=== PATIENT | female | born 1940 | race Caucasian/White ===

== ENCOUNTER 2020-05-31 17:06 | Inpatient (IN) | payer MEDICARE ==
[~2020-05-31] VITALS: Ht 167.6 cm; Wt 77.2 kg
[2020-05-31 19:24] LABS: BASOPHILS % (AUTO) 0.2 % (0.0-5.0); EOSINOPHILS % (AUTO) 0.2 % (0.0-8.0); HEMATOCRIT 39.1 % (36-48); MEAN CORPUSCULAR HEMOGLOBIN 33.8 pg (27.0-33.0); MEAN CORPUSCULAR HGB CONC 34.5 g/dL (32.0-36.0); MEAN CORPUSCULAR VOLUME 97.8 fL (79-99); NEUTROPHILS % (AUTO) 87.2 % (40.0-77.0); PLATELET COUNT (AUTO) 238 K/uL (130-400); RED CELL DISTRIBUTION WIDTH 12.2 % (11.0-15.5); WHITE BLOOD COUNT (AUTO) 14.2 K/uL (4.8-10.8)
[2020-05-31 19:35] LABS: CREATININE 1.1 mg/dL (0.5-1.5); POTASSIUM 3.5 mmol/L (3.5-5.1)
[2020-05-31 19:36] LABS: INR 0.98 (0.85-1.15); PROTHROMBIN TIME 10.7 SEC (9.6-11.6)
[2020-05-31 19:37] LABS: PARTIAL THROMBOPLASTIN TIME 23.3 SEC (26.3-35.5)
[2020-05-31 19:44] LABS: ALBUMIN 3.7 g/dL (3.5-5.0); BILIRUBIN,TOTAL 0.5 mg/dL (0.2-1.0)
[2020-05-31] MEDS ORDERED: HYDROCODONE/ACETAMINOPHEN 10/325 MG TAB ONE (20:29)
[2020-05-31] MEDS ORDERED: CEFTRIAXONE 1G VIAL ONE (20:29)
[2020-05-31] MEDS ORDERED: 0.9%NACL 100ML 100 ML IV ONE (20:31)
[2020-05-31] MEDS ORDERED: KETOROLAC 15MG/ML VIAL (15MG/ML) ONE (20:54)
[2020-05-31] MEDS: LACTATED RINGERS 1000ML 1,000 ML IV SCH (21:00)
[2020-05-31] MEDS: CEFTRIAXONE 1G VIAL IVP SCH (21:00)
[2020-06-01] MEDS ORDERED: KETOROLAC 15MG/ML VIAL (15MG/ML) ONE ×2 (05:02→13:12)
[2020-06-01 05:21] LABS: BASOPHILS % (AUTO) 0.1 % (0.0-5.0); EOSINOPHILS % (AUTO) 0.1 % (0.0-8.0); HEMATOCRIT 34.7 % (36-48); LYMPHOCYTES % (AUTO) 11.4 % (21.0-51.0); MEAN CORPUSCULAR HEMOGLOBIN 33.1 pg (27.0-33.0); MEAN CORPUSCULAR HGB CONC 34.3 g/dL (32.0-36.0); MEAN CORPUSCULAR VOLUME 96.7 fL (79-99); MONOCYTES % (AUTO) 10.5 % (3.0-13.0); NEUTROPHILS % (AUTO) 77.6 % (40.0-77.0); PLATELET COUNT (AUTO) 218 K/uL (130-400); RED BLOOD CELL COUNT(AUTO) 3.59 MIL/uL (4.00-5.50); RED CELL DISTRIBUTION WIDTH 12.2 % (11.0-15.5); WHITE BLOOD COUNT (AUTO) 8.8 K/uL (4.8-10.8)
[2020-06-01 05:55] LABS: ALBUMIN 3.3 g/dL (3.5-5.0); BILIRUBIN,TOTAL 0.7 mg/dL (0.2-1.0); CREATININE 0.9 mg/dL (0.5-1.5); POTASSIUM 4.1 mmol/L (3.5-5.1); TOTAL PROTEIN, SERUM 6.4 g/dL (6.0-8.3)
[2020-06-01] MEDS ORDERED: LACTATED RINGERS 1000ML 1,000 ML IV ONE (07:46)
[2020-06-01] MEDS: FAMOTIDINE 20MG VIAL IV SCH (09:00)
[2020-06-01] MEDS: LACTATED RINGERS 1000ML 1,000 ML IV SCH ×2 (10:20→23:40)
[2020-06-01] MEDS ORDERED: MV,1TABL8 PO (16:43)
[2020-06-01] MEDS ORDERED: CYAN-35 PO (16:43)
[2020-06-01] MEDS ORDERED: AMLO-257 PO (16:43)
[2020-06-01] MEDS ORDERED: CALC-1085 PO (16:43)
[2020-06-01] MEDS ORDERED: LISI40TA9 PO (16:43)
[2020-06-01] MEDS ORDERED: ROSU10TA28 PO (16:43)
[2020-06-01 16:55] VITALS: BP 148/65
[2020-06-01] MEDS: KETOROLAC 15MG/ML VIAL (15MG/ML) IV PRN (18:36)
[2020-06-01 20:00] VITALS: BP 129/63
[2020-06-01] MEDS: CEFTRIAXONE 1G VIAL IVP SCH (20:29)
[2020-06-02] VITALS: BP 129/58
[2020-06-02] MEDS: KETOROLAC 15MG/ML VIAL (15MG/ML) IV PRN ×4 (00:22→19:10)
[2020-06-02 04:00] VITALS: BP 159/63
[2020-06-02 08:00] VITALS: BP 132/57
[2020-06-02] MEDS: LACTATED RINGERS 1000ML 1,000 ML IV SCH (08:17)
[2020-06-02] MEDS: FAMOTIDINE 20MG VIAL IV SCH (08:18)
[2020-06-02 11:00] VITALS: BP 143/66
[2020-06-02 16:28] VITALS: BP 141/62
[2020-06-02 19:00] VITALS: BP 158/81
[2020-06-02] MEDS: CEFTRIAXONE 1G VIAL IVP SCH (20:11)
[2020-06-02] MEDS ORDERED: NON-FORMULARY MEDICATION 1 EACH (Rosuvastatin Calcium 10 MG) PO SCH (21:00)
[2020-06-02] MEDS: ATORVASTATIN 20 MG TABLET PO SCH (21:00)
[2020-06-03] VITALS: BP 123/66
[2020-06-03] MEDS: KETOROLAC 15MG/ML VIAL (15MG/ML) IV PRN ×4 (01:53→20:15)
[2020-06-03 04:00] VITALS: BP 121/59
[2020-06-03] MEDS: LACTATED RINGERS 1000ML 1,000 ML IV SCH ×2 (06:04→17:24)
[2020-06-03 07:07] VITALS: BP 124/59
[2020-06-03] MEDS: LISINOPRIL 40 MG TABLET PO SCH ×2 (09:00→10:10)
[2020-06-03] MEDS: AMLODIPINE 5 MG TAB PO SCH ×2 (09:00→10:10)
[2020-06-03] MEDS: FAMOTIDINE 20MG VIAL IV SCH (09:10)
[2020-06-03 11:36] VITALS: BP 135/62
[2020-06-03 15:39] VITALS: BP 125/66
[2020-06-03] MEDS: ATORVASTATIN 20 MG TABLET PO SCH (20:17)
[2020-06-03] MEDS: CEFTRIAXONE 1G VIAL IVP SCH (20:17)
[2020-06-03 20:54] VITALS: BP 138/71
[2020-06-04] VITALS (23 sets, daily range): BP systolic 101–141; BP diastolic 47–77
[2020-06-04] MEDS: LACTATED RINGERS 1000ML 1,000 ML IV SCH ×2 (03:10→21:16)
[2020-06-04] MEDS: KETOROLAC 15MG/ML VIAL (15MG/ML) IV PRN ×3 (03:10→17:51)
[2020-06-04] MEDS ORDERED: MIDAZOLAM HCL 1 MG/ML 2ML VIAL ONE (06:54)
[2020-06-04] MEDS ORDERED: LIDOCAINE PF 100MG/5ML (2%) SYRINGE 5ML ONE (06:55)
[2020-06-04] MEDS ORDERED: PROPOFOL 10 MG/ML 20ML VIAL IV ONE (06:56)
[2020-06-04] MEDS ORDERED: ONDANSETRON 4MG INJ ONE (06:56)
[2020-06-04] MEDS ORDERED: ROCURONIUM 10MG/1ML SYR 10 MG/ML ML ONE ×2 (06:57→08:43)
[2020-06-04] MEDS ORDERED: ROPIVACAINE 0.5% 5MG/ML 30ML IJ ONE (06:58)
[2020-06-04] MEDS ORDERED: DEXAMETHASONE SOD PHOSPHATE 10MG/ML 1ML VIAL ONE (07:02)
[2020-06-04] MEDS ORDERED: EPHEDRINE SULFATE 50 MG/ML AMPULE ONE (07:44)
[2020-06-04] MEDS: LISINOPRIL 40 MG TABLET PO SCH (09:00)
[2020-06-04] MEDS: FAMOTIDINE 20MG VIAL IV SCH (09:00)
[2020-06-04] MEDS: AMLODIPINE 5 MG TAB PO SCH (09:00)
[2020-06-04] MEDS ORDERED: NEOSTIGMINE 5MG/5ML SYR IV ONE (09:08)
[2020-06-04] MEDS ORDERED: GLYCOPYRROLATE 1 MG/5 ML SYRINGE ONE (09:08)
[2020-06-04] MEDS ORDERED: MEPERIDINE-PF 25 MG/ML SYG ONE (09:09)
[2020-06-04] MEDS: CEFTRIAXONE 1G VIAL IVP SCH (21:16)
[2020-06-04] MEDS: ATORVASTATIN 20 MG TABLET PO SCH (21:16)
[2020-06-04] MEDS: ACETAMINOPHEN WITH CODEINE 1 TAB TAB PO PRN (21:32)
[2020-06-05] MEDS: KETOROLAC 15MG/ML VIAL (15MG/ML) IV PRN ×3 (00:32→21:21)
[2020-06-05] MEDS: ACETAMINOPHEN WITH CODEINE 1 TAB TAB PO PRN ×3 (03:03→15:12)
[2020-06-05 04:00] VITALS: BP 113/53
[2020-06-05 06:08] LABS: HEMATOCRIT 26.7 % (36-48); MEAN CORPUSCULAR HEMOGLOBIN 33.2 pg (27.0-33.0); MEAN CORPUSCULAR HGB CONC 33.3 g/dL (32.0-36.0); MEAN CORPUSCULAR VOLUME 99.6 fL (79-99); RED BLOOD CELL COUNT(AUTO) 2.68 MIL/uL (4.00-5.50); RED CELL DISTRIBUTION WIDTH 12.3 % (11.0-15.5)
[2020-06-05 06:26] LABS: CREATININE 0.8 mg/dL (0.5-1.5); POTASSIUM 3.5 mmol/L (3.5-5.1)
[2020-06-05 08:32] VITALS: BP 126/62
[2020-06-05] MEDS: FAMOTIDINE 20MG VIAL IV SCH (08:43)
[2020-06-05] MEDS: LISINOPRIL 40 MG TABLET PO SCH (08:43)
[2020-06-05] MEDS: AMLODIPINE 5 MG TAB PO SCH (08:43)
[2020-06-05] MEDS: LACTATED RINGERS 1000ML 1,000 ML IV SCH ×2 (08:46→20:01)
[2020-06-05 12:26] VITALS: BP 123/60
[2020-06-05] MEDS ORDERED: LACTULOSE 20 GM/30 ML UDCUP PO SCH (15:45)
[2020-06-05 16:00] VITALS: BP 113/52
[2020-06-05 20:00] VITALS: BP 104/62
[2020-06-05] MEDS: CEFTRIAXONE 1G VIAL IVP SCH (20:01)
[2020-06-05] MEDS: LACTULOSE 20 GM/30 ML UDCUP PO SCH (20:02)
[2020-06-05] MEDS: ATORVASTATIN 20 MG TABLET PO SCH (20:02)
[2020-06-05 23:56] VITALS: BP 115/47
[2020-06-06] MEDS: ACETAMINOPHEN WITH CODEINE 1 TAB TAB PO PRN ×3 (02:43→21:14)
[2020-06-06 04:00] VITALS: BP 110/57
[2020-06-06 06:19] LABS: BASOPHILS % (AUTO) 0.5 % (0.0-5.0); EOSINOPHILS % (AUTO) 5.4 % (0.0-8.0); HEMATOCRIT 23.3 % (36-48); MEAN CORPUSCULAR HGB CONC 34.3 g/dL (32.0-36.0); MEAN CORPUSCULAR VOLUME 99.1 fL (79-99); MONOCYTES % (AUTO) 12.4 % (3.0-13.0); NEUTROPHILS % (AUTO) 61.2 % (40.0-77.0); PLATELET COUNT (AUTO) 217 K/uL (130-400); RED BLOOD CELL COUNT(AUTO) 2.35 MIL/uL (4.00-5.50); RED CELL DISTRIBUTION WIDTH 12.7 % (11.0-15.5); WHITE BLOOD COUNT (AUTO) 6.3 K/uL (4.8-10.8)
[2020-06-06 06:30] LABS: CREATININE 0.7 mg/dL (0.5-1.5); POTASSIUM 3.2 mmol/L (3.5-5.1)
[2020-06-06] MEDS ORDERED: KCL 20 MEQ ERTAB PO ONE (06:49)
[2020-06-06] MEDS ORDERED: POTASSIUM CHLORIDE 10% ELIXIR 20 MEQ/15 ML UDCUP PO PRN (07:00)
[2020-06-06] MEDS ORDERED: LIDOCAINE HCL-MPF 1% 2ML VIAL IV PRN (07:00)
[2020-06-06] MEDS ORDERED: POTASSIUM CHLORIDE 20MEQ/100ML 100 ML IV PRN (07:00)
[2020-06-06 08:33] VITALS: BP 113/53
[2020-06-06] MEDS: FERROUS SULFATE 325 MG TABLET.DR PO SCH (08:43)
[2020-06-06] MEDS: LACTULOSE 20 GM/30 ML UDCUP PO SCH ×2 (08:43→20:23)
[2020-06-06] MEDS: LISINOPRIL 40 MG TABLET PO SCH (08:43)
[2020-06-06] MEDS: FAMOTIDINE 20MG VIAL IV SCH (08:43)
[2020-06-06] MEDS: AMLODIPINE 5 MG TAB PO SCH (08:43)
[2020-06-06] MEDS ORDERED: POLYETHYLENE GLYCOL 3350 17 GM POWD.PACK PO SCH (09:56)
[2020-06-06] MEDS: KCL 20 MEQ ERTAB PO PRN ×2 (10:06→12:20)
[2020-06-06] MEDS ORDERED: ENOXAPARIN SODIUM 40 MG/0.4 ML SYRINGE SQ SCH (10:30)
[2020-06-06 20:16] VITALS: BP 135/60
[2020-06-06] MEDS: ATORVASTATIN 20 MG TABLET PO SCH (20:23)
[2020-06-06 23:25] VITALS: BP 111/54
[2020-06-07] VITALS (8 sets, daily range): BP systolic 115–167; BP diastolic 56–79
[2020-06-07] MEDS: ACETAMINOPHEN WITH CODEINE 1 TAB TAB PO PRN ×3 (04:07→18:47)
[2020-06-07 05:31] LABS: BASOPHILS % (AUTO) 0.5 % (0.0-5.0); EOSINOPHILS % (AUTO) 5.7 % (0.0-8.0); LYMPHOCYTES % (AUTO) 19.2 % (21.0-51.0); MEAN CORPUSCULAR HGB CONC 33.5 g/dL (32.0-36.0); MEAN CORPUSCULAR VOLUME 98.7 fL (79-99); MONOCYTES % (AUTO) 13.8 % (3.0-13.0); NEUTROPHILS % (AUTO) 60.1 % (40.0-77.0); PLATELET COUNT (AUTO) 237 K/uL (130-400); RED BLOOD CELL COUNT(AUTO) 2.33 MIL/uL (4.00-5.50); RED CELL DISTRIBUTION WIDTH 12.5 % (11.0-15.5); WHITE BLOOD COUNT (AUTO) 5.9 K/uL (4.8-10.8)
[2020-06-07 05:49] LABS: CREATININE 0.6 mg/dL (0.5-1.5); POTASSIUM 3.5 mmol/L (3.5-5.1)
[2020-06-07] MEDS: KCL 20 MEQ ERTAB PO PRN (06:48)
[2020-06-07] MEDS ORDERED: EPOETIN ALFA-EPBX (NON-ESRD) 10,000 UNIT/ML VIAL SQ SCH (09:30)
[2020-06-07 09:34] LABS: RETICULOCYTE % (AUTO) 4.6 % (0.42-2.23)
[2020-06-07 10:05] LABS: % IRON SATURATION 15.1 % (22-44)
[2020-06-07] MEDS ORDERED: COMPOUND IV MISC 1 EACH IVSOLN MISC PRN (10:15)
[2020-06-07] MEDS: FAMOTIDINE 20MG VIAL IV SCH (11:30)
[2020-06-07] MEDS: LACTULOSE 20 GM/30 ML UDCUP PO SCH ×2 (11:30→21:00)
[2020-06-07] MEDS: FERROUS SULFATE 325 MG TABLET.DR PO SCH (11:30)
[2020-06-07] MEDS: AMLODIPINE 5 MG TAB PO SCH (11:31)
[2020-06-07] MEDS: IRON SUCROSE COMPLEX 300 MG in 0.9% NACL 250ML 250 ML IV SCH (11:31)
[2020-06-07] MEDS: LISINOPRIL 40 MG TABLET PO SCH (11:31)
[2020-06-07] MEDS: ATORVASTATIN 20 MG TABLET PO SCH (20:54)
[2020-06-08] MEDS: ACETAMINOPHEN WITH CODEINE 1 TAB TAB PO PRN ×3 (02:23→18:40)
[2020-06-08 03:51] VITALS: BP 125/46
[2020-06-08 07:30] VITALS: BP 127/66
[2020-06-08] MEDS: LACTULOSE 20 GM/30 ML UDCUP PO SCH ×2 (09:00→21:20)
[2020-06-08] MEDS: FERROUS SULFATE 325 MG TABLET.DR PO SCH (10:31)
[2020-06-08] MEDS: FAMOTIDINE 20MG VIAL IV SCH (10:31)
[2020-06-08] MEDS: LISINOPRIL 40 MG TABLET PO SCH (10:31)
[2020-06-08] MEDS: AMLODIPINE 5 MG TAB PO SCH (10:31)
[2020-06-08 11:00] VITALS: BP 146/70
[2020-06-08] MEDS: IRON SUCROSE COMPLEX 300 MG in 0.9% NACL 250ML 250 ML IV SCH (12:30)
[2020-06-08 16:00] VITALS: BP 101/45
[2020-06-08 19:00] VITALS: BP 123/59
[2020-06-08] MEDS: ATORVASTATIN 20 MG TABLET PO SCH (21:20)
[2020-06-09] VITALS: BP 127/60
[2020-06-09] MEDS: ACETAMINOPHEN WITH CODEINE 1 TAB TAB PO PRN ×3 (00:47→15:43)
[2020-06-09 04:00] VITALS: BP 113/56
[2020-06-09 08:12] VITALS: BP 129/65
[2020-06-09] MEDS: AMLODIPINE 5 MG TAB PO SCH (08:22)
[2020-06-09] MEDS: FERROUS SULFATE 325 MG TABLET.DR PO SCH (08:22)
[2020-06-09] MEDS: FAMOTIDINE 20MG VIAL IV SCH (08:22)
[2020-06-09] MEDS: LISINOPRIL 40 MG TABLET PO SCH (08:23)
[2020-06-09] MEDS: LACTULOSE 20 GM/30 ML UDCUP PO SCH (08:23)
[2020-06-09] MEDS: IRON SUCROSE COMPLEX 300 MG in 0.9% NACL 250ML 250 ML IV SCH (08:27)
[2020-06-09 12:00] VITALS: BP 117/59
== END 2020-06-09 17:00 | DRG 483 ==
LOC: EDH 17:06 → EDHIP 20:51 → 3BH 06-01 16:15
PROVIDERS: ADMIT Family Medicine; ATTEND Family Medicine
PROC: 0RRJ00Z Replacement of Right Shoulder Joint with Reverse Ball and Socket Synthetic Substitute, Open Approach (ICD-10-PCS; principal; 2020-06-04 07:37)
DX: S42.241A 4-part fracture of surgical neck of right humerus, initial encounter for closed fracture (principal); D64.9 Anemia, unspecified; E78.00 Pure hypercholesterolemia, unspecified; E78.5 Hyperlipidemia, unspecified; W01.0XXA Fall on same level from slipping, tripping and stumbling without subsequent striking against object, initial encounter; I10 Essential (primary) hypertension; M47.812 Spondylosis without myelopathy or radiculopathy, cervical region; Z60.2 Problems related to living alone; Y93.89 Activity, other specified; Y92.89 Other specified places as the place of occurrence of the external cause; Y99.8 Other external cause status
CPT/HCPCS: 36415; 70450; 71045; 72125; 73030; 73060; 80048; 80053; 83540; 83550; 84132; 84484; 85025; 85027; 85045; 85610; 85730; 86850; 86900; 86901; 93005; 93306; 93356; 97039; A4606; C1776; G0378; J0696; J1100; J1756; J1885; J2001; J2175; J2250; J2405; J2704; J2710; J2795; J3490; J7050; J7120